=== PATIENT | male | born 1995 | race Caucasian/White ===

== ENCOUNTER 2022-10-14 09:02 | Emergency (ER) | payer MEDICAID ==
[~2022-10-14] VITALS: Ht 175.3 cm; Wt 86.0 kg
[2022-10-14 09:09] VITALS: BP 172/113
[2022-10-14] MEDS ORDERED: LACTULOSE 20G/30ML UDC PO ONE (11:15)
[2022-10-14] MEDS ORDERED: POLY17PO3 PO (11:31)
[2022-10-14] MEDS ORDERED: TOPUD PO (11:31)
[2022-10-14 12:04] LABS: CHLORIDE 107 mEq/L (98-107)
[2022-10-14 12:31] LABS: BASOPHILS % 0.2 % (0.0-2.0); EOSINOPHILS % 1.2 % (0.0-5.0); HEMATOCRIT. 40.2 % (42.0-52.0); HEMOGLOBIN. 13.5 g/dL (14.0-18.0); LYMPHOCYTES % 28.8 % (20.0-50.0); MEAN CORPUSCULAR HEMOGLOBIN 28.9 pg (28.0-32.0); MEAN CORPUSCULAR VOLUME 85.9 fL (80.0-94.0); MEAN PLATELET VOLUME 6.6 fl (7.4-10.4); MONOCYTES % 6.5 % (2.0-8.0); NEUTROPHILS % 63.3 % (40.0-76.0); PLATELET 290 x1000/uL (130-400); RED BLOOD CELL COUNT 4.67 mill/uL (4.7-6.1); RED CELL DISTRIBUTION WIDTH 13.1 % (11.6-14.6)
== END 2022-10-14 11:58 | disposition home or self-care (01) ==
LOC: ER 09:02
DX: K56.41 Fecal impaction (principal)
CPT/HCPCS: 36415; 80053; 85025; 99283